=== PATIENT | female | born 2000 | race Caucasian/White ===

== ENCOUNTER 2018-06-21 05:11 | Emergency (ER) | payer MEDICAID, OTHER ==
[2018-06-21 05:18] VITALS: RESP 16; TEMP 98.4
--- NOTE | 2018-06-21 05:47 | ED ---
General Adult HPI - General Chief complaint: Back Pain/Injury Stated complaint: Back Pain Source: patient Mode of arrival: ambulatory Limitations: no limitations - Related Data Home Medications Medication Instructions Recorded Confirmed No Known Home Medications 11/15/15 11/15/15 Allergies Allergy/AdvReac Type Severity Reaction Status Date / Time No Known Allergies Allergy Verified 06/21/18 05:18 Review of Systems ROS Statement: Those systems with pertinent positive or pertinent negative responses have been documented in the HPI. ROS Other: All systems not noted in ROS Statement are negative. Past Medical History Past Medical History: No Reported History History of Any Multi-Drug Resistant Organisms: None Reported Past Surgical History: No Surgical Hx Reported Past Psychological History: No Psychological Hx Reported Smoking Status: Never smoker Past Alcohol Use History: None Reported Past Drug Use History: None Reported General Exam Limitations: no limitations Course Vital Signs 06/21/18 06/21/18 05:16 06:33 Temperature 98.4 F Pulse Rate 84 69 Respiratory 16 16 Rate Blood Pressure 132/91 113/76 O2 Sat by Pulse 99 97 Oximetry Medical Decision Making - Medical Decision Making Dictation was produced using [employer] dictation software. please excuse any grammatical, word or spelling errors. Chief Complaint: 18-year-old female presents with lower back pain. History of Present Illness: She is 18-year-old female withpast medical history presents with lower back pain. Patient states she works out daily. She states that she did something different at her workout class. She does not recall any specific inciting event. Patient states that she has some tightness to her lower back area. She states that it's on both sides of the spine in the lower back. Patient states worse with movement. She does feel some exacerbation of symptoms when she curls her back. His any lower extremity neuro deficits. No difficulty walking. Denies any constitutional symptoms. The ROS documented in this emergency department record has been reviewed and confirmed by me. Those systems with pertinent positive or negative responses have been documented in the HPI. All other systems are other negative and/or noncontributory. PHYSICAL EXAM: General Impression: Alert and oriented x3, not in acute distress HEENT: Normocephalic atraumatic, extra-ocular movements intact, pupils equal and reactive to light bilaterally, mucous membranes moist. Cardiovascular: Heart regular rate and rhythm, S1&S2 audible, no murmurs, rubs or gallops Chest: Lungs clear to auscultation bilaterally, no rhonchi, no wheeze, no rales Abdomen: Bowel sounds present, abdomen soft, non-tender, non-distended, no organomegaly Musculoskeletal: Pulses present and equal in all extremities, no peripheral edema, mild tenderness to palpation to the lower spinal erectors. Motor: Power 5/5 bilaterally, no focal deficits noted Neurological: CN II-XII grossly intact, no focal motor or sensory deficits noted Skin: Intact with no visualized rashes Psych: Normal affect and mood ED course: 18-year-old female with clinical presentation consistent with musculoskeletal lower back pain. Vital signs upon arrival are within acceptable limits. Urinalysis was obtained showing no acute processes. Patient given lidocaine patch. Patient told to [id number] medications when necessary symptoms. Advised to rest. Early mobility is also encouraged. Patient discharged told to follow-up with primary care physician as return to emergency Department with any worsening symptoms including fever and worsening back pain. - Lab Data Lab Results 06/21/18 06/21/18 Range/Units 06:13 06:13 Urine Color Light Yellow Urine Appearance Cloudy H (Clear) Urine pH 6.5 (5.0-8.0) Ur Specific [place] 1.006 (1.001-1.035) Urine Protein Negative (Negative) Urine Glucose (UA) Negative (Negative) Urine Ketones Negative (Negative) Urine Blood Negative (Negative) Urine Nitrite Negative (Negative) Urine Bilirubin Negative (Negative) Urine Urobilinogen <2.0 (<2.0) mg/dL Ur Leukocyte Esterase Negative (Negative) Urine WBC 2 (0-5) /hpf Ur Squamous Epith Cells 21 H (0-4) /hpf Urine Mucus Rare H (None) /hpf Urine HCG, Qual Not Detected (Not Detectd) Disposition Clinical Impression: Mechanical back pain Disposition: HOME SELF-CARE Condition: Good Instructions: Acute Low Back Pain (ED) Is patient prescribed a controlled substance at d/c from ED?: No Referrals: None,Stated [Primary Care Provider] - 1-2 days Time of Disposition: 06:47
[2018-06-21] MEDS ORDERED: LIDOCAINE 5% PATCH TOPICAL STA (06:12)
[2018-06-21 06:30] LABS: Appearance,Urine Cloudy (Clear); Bilirubin,Urine Negative (Negative); Blood,Urine Negative (Negative); Color,Urine Light Yellow; Glucose,Urine (UA) Negative (Negative); Ketones,Urine Negative (Negative); Leukocyte Esterase,Urine Negative (Negative); Mucus,Urine Rare /hpf; Nitrite,Urine Negative (Negative); PH, Urine 6.5 (5.0-8.0); Protein,Urine Negative (Negative); Specific Gravity,Urine 1.006 (1.001-1.035); Squamous Epithelial Cell,Urine 21 /hpf (0-4); Urobilinogen,Urine <2.0 mg/dL (<2.0); WBC,Urine 2 /hpf (0-5)
[2018-06-21 06:33] VITALS: BP 113/76; PULSE 69
== END 2018-06-21 06:58 | disposition home or self-care (01) ==
LOC: EC 05:11
DX: M54.5 Low back pain (principal)
CPT/HCPCS: 81001; 81025; 99283

== ENCOUNTER → 2021-10-07 | Outpatient (CLI) | payer MEDICAID ==
--- NOTE | 2021-10-08 04:16 | MR ---
EXAMINATION TYPE: MR ankle RT wo con DATE OF EXAM: 10/07/2021 COMPARISON: None HISTORY: Pain R ankle Multiplanar multiecho imaging of the right ankle without contrast. Achilles tendon is intact. Medial and lateral flexor tendons are intact. Ankle mortise is anatomic. T he collateral ligaments are intact. Joint spaces are fairly normal. There is a mild ankle joint effus ion. No evidence of a soft tissue mass. Subtalar joint is intact. There is edema in the medial aspect of the navicular. There is linear defect across the medial aspect of the navicular in the area of edema. It is not clear if this is related to an accessory ossicle or through subacute fracture line. Abnormal area measures 2.5 cm in length. IMPRESSION: Significant edema in the medial navicular and probably subacute 8mm chip fracture of the medial poste rior navicular. No displacement. No ligament or tendon tear.
== END | disposition home or self-care (01) ==
LOC: RADMRIMAIN 06:41
PROVIDERS: ATTEND Podiatrist
DX: R60.0 Localized edema (principal)

== ENCOUNTER → 2023-01-19 | Outpatient (CLI) | payer MEDICAID ==
--- NOTE | 2023-02-02 20:16 | MR ---
EXAMINATION TYPE: MR foot LT wo con DATE OF EXAM: 01/19/2023 COMPARISON: MRI ankle 10/17/2021 HISTORY: 22-year-old female Left foot pain x 2 yrs, no trauma. TECHNIQUE: Multiplanar, multisequence images of the leftward were obtained without IV contrast. FINDINGS: There is ongoing intense edema at the medial navicular with a type II accessory navicular present. Otherwise, no acute or healing fracture or otherwise any suspicious bone marrow edema. The tibiotalar and subtalar joints are aligned. Preserved fatty signal within the sinus tarsi. The tarsal tunnel is clear. The Achilles tendon and origin of the plantar fascia are intact. The Lisfranc ligament is visualized. No additional cysts significant soft tissue abnormality is seen. IMPRESSION: Ongoing intense edema within the medial navicular with a type II accessory navicular present. Finding s suggest os navicularis syndrome. No other specific abnormality seen.
== END | disposition home or self-care (01) ==
LOC: RADMRIMAIN 08:09
PROVIDERS: ATTEND Orthopaedic Surgery Foot and Ankle Surgery
DX: Q74.2 Other congenital malformations of lower limb(s), including pelvic girdle (principal); M76.822 Posterior tibial tendinitis, left leg; R60.0 Localized edema